=== PATIENT | female | born 1985 | race Asian ===

== ENCOUNTER 2020-07-04 04:05 | Outpatient (CLI) | payer MEDICAID, SELFPAY ==
[2020-07-04 10:16] LABS: HCT 43.3 % (36.0-46.0); HGB 14.3 g/dL (11.2-15.7); MCH 28.9 pg (27.0-33.0); MCV 87.7 fL (80-95); MPV 10.1 fL (8.0-11.0); Platelet Count 295 10^3/uL (130-400); RBC 4.94 10^6/uL (3.93-5.22); RDW-SD 38.4 fL; WBC 6.77 10^3/uL (4.4-10.8)
[2020-07-04 11:49] LABS: Source Nasal/Nares
[2020-07-04 19:02] LABS: COVID-19 PCR Negative (Negative)
== END 2020-07-04 04:06 | disposition home or self-care (01) ==
LOC: LBO 04:05
PROVIDERS: PCP Family Medicine; Visit Provider Obstetrics & Gynecology
DX: Z20.822 Contact with and (suspected) exposure to COVID-19; Z01.818 Encounter for other preprocedural examination; Z01.812 Encounter for preprocedural laboratory examination; Z30.2 Encounter for sterilization
CPT/HCPCS: 36415; 85027; 86850; 86900; 86901; 87635

== ENCOUNTER 2020-08-08 03:18 | Outpatient (CLI) | payer MEDICAID, SELFPAY ==
[2020-08-08 09:55] LABS: HCT 41.6 % (36.0-46.0); MCH 28.7 pg (27.0-33.0); MCHC 33.7 % (32.0-36.0); MCV 85.4 fL (80-95); MPV 9.9 fL (8.0-11.0); Platelet Count 287 10^3/uL (130-400); RBC 4.87 10^6/uL (3.93-5.22); RDW-SD 37.2 fL; WBC 5.56 10^3/uL (4.4-10.8)
[2020-08-08 10:57] LABS: HCG Quant, Pregnancy < 1 mIU/mL (1-3)
[2020-08-08 11:41] LABS: Source Nasal/Nares
[2020-08-08 21:13] LABS: COVID-19 PCR Negative (Negative)
== END 2020-08-08 03:19 | disposition home or self-care (01) ==
LOC: LBO 03:18
PROVIDERS: PCP Family Medicine; Visit Provider Obstetrics & Gynecology
DX: Z30.2 Encounter for sterilization (principal); Z20.822 Contact with and (suspected) exposure to COVID-19; Z01.818 Encounter for other preprocedural examination; Z01.812 Encounter for preprocedural laboratory examination
CPT/HCPCS: 36415; 85027; 86850; 86900; 86901; 87635; 84702

== ENCOUNTER 2020-08-10 06:08 | Day surgery (SDC) | payer MEDICAID, SELFPAY ==
[2020-08-10] VITALS (15 sets, daily range): BP systolic 60–110; BP diastolic 35–67; PULSE 61–90; RESP 10–25; TEMP 36.1–36.6; O2SAT 99–100; BMI 24.6
[2020-08-10] MEDS: Lactated Ringers 1,000 ML 125 ML IV ×2 (07:00→11:46)
--- NOTE | 2020-08-10 07:07 | W.ANESPRE ---
General Info Date of Service Date Performed: 08/10/20 Height: 5 ft Weight: 57.3 kg Body Mass Index (BMI): 24.6 Surgical Procedure: Operation Date: 08/10/20 07:40 Proposed Procedures Side Surgeon p Salpingectomy Laparoscopic Sabra Cifuentes DO Meds Allergies and Home Medications Allergies Allergy/AdvReac Type Severity Reaction Status Date / Time No Known Allergies Allergy Unverified 08/10/20 06:33 Home Medication Medication Instructions Recorded Unknown [No Known Home Meds] 07/04/20 Current Visit Medications: Current Medications Generic Name Dose Route Start Last Admin Trade Name Freq PRN Reason Stop Dose Admin Ringer's Solution 1,000 mls @ 125 mls/hr 08/10/20 06:00 08/10/20 07:00 IV 09/08/20 23:59 125 mls/hr INFUSION ELIDIA Administration IV Miscellaneous Supplies 1 each 08/10/20 06:00 Iv Access IV 09/08/20 23:59 DIRECTED ELIDIA Sodium Chloride 0 ml 08/10/20 06:00 Normal Saline Flush 10 Ml Syr IV 09/08/20 23:59 PRN PRN Sodium Chloride 0 ml 08/10/20 06:00 Normal Saline 10 Ml Vial IJ 09/08/20 23:59 DIRECTED PRN Sterile Water 0 ml 08/10/20 06:00 Water,Injection,Sterile 10 Ml Vial IJ 09/08/20 23:59 DIRECTED PRN PFSH Active Problems Active Problems: Problem Status Onset Code Contraceptive management Z30.9 Medical History Medical History Contraceptive management Tobacco Smoking/Tobacco Use Status: Never Alcohol Alcohol Intake: never Substance Use Substance use type: does not use Vital Signs and Lab Results Vital Signs Most Recent Vital Signs in EMR: Most Recent Vital Signs Temp Pulse Resp BP Pulse Ox 36.6 C 71 16 99/67 L 99 08/10/20 06:34 08/10/20 06:34 08/10/20 06:34 08/10/20 06:34 08/10/20 06:34 Lab Results Result Diagrams: 07/05/20 14:37 Blood Type / Crossmatch: Patient ABO/Rh O Positive 08/08/20 09:47 08/08/20 Antibody Screen Negative 08/08/20 09:47 08/08/20 Complete Blood Count: White Blood Count 5.56 10^3/uL (4.4-10.8) 08/08/20 09:47 08/08/20 Red Blood Count 4.87 10^6/uL (3.93-5.22) 08/08/20 09:47 08/08/20 Hemoglobin 14.0 g/dL (11.2-15.7) 08/08/20 09:47 08/08/20 Hematocrit 41.6 % (36.0-46.0) 08/08/20 09:47 08/08/20 Platelet Count 287 10^3/uL (130-400) 08/08/20 09:47 08/08/20 Complete Metabolic Panel: No Data to Display Liver Function Panel: No Data to Display Coagulation Panel: No Data to Display Cardiac Panel: No Data to Display Arterial Blood Gas: No Data to Display Venous Blood Gas: No Data to Display Pancreas Panel: No Data to Display Thyroid Panel: No Data to Display Infectious Disease: Coronavirus (COVID-19)(PCR) Negative (Negative) 08/08/20 10:26 08/08/20 Coronavirus 2019 Source Nasal/nares 08/08/20 10:26 08/08/20 Blood Cultures: No Data to Display Toxicology Panel: No Data to Display Panel: Beta HCG, Quantitative < 1 mIU/mL (1-3) L 08/08/20 09:47 08/08/20 Anesthesia Assessment and Plan Anesthesia History Personal History: No History of General Anesthesia Family History: No Family History of Anesthesia Complications Exercise Tolerance Exercise Tolerance: Metabolic Equivalents>4 Pertinent Negatives Pertinent Negatives: No Symptoms of GERD Cardiac & Pulmonary Exam Cardiac Exam: Normal S1/S2 Heart Sounds Pulmonary Exam: Clear Bilateral Breath Sounds Airway Exam Known Difficult Airway: No Mallampati Class: 2 Mouth Opening: Normal (> 3cm) Thyromental Distance: Greater than 3 cm Facial Hair: Full Soriano Neck Range of Motion: Full ROM Neck Circumference: Normal Teeth Condition: Normal Dentition ASA Classification ASA Score: ASA 1 Emergency Case?: No NPO Status NPO Status: NPO Clears >2 hours, Solids >8 hours Status Status: Negative HCG Anesthesia Plan Resuscitation Status: Full Code Anesthesia Technique: General Anesthesia Airway Planned: Endotracheal Tube Monitors Used: Standard Monitors
[2020-08-10] MEDS: Bupivacaine 0.25% Pres-Free 30 ML VIAL (09:20)
--- NOTE | 2020-08-10 09:22 | FALL_PTH ---
PATIENT: Art Penn LOC: [facility] U#:[id number] AGE/SX: 35/F ROOM: RE08/10/[address]: Sabra Cifuentes DO : 1985 BED: DIS: 08/10/2020 SPEC #: [id number] RECD: 08/10/20 12:42 STATUS: LUZ MARINA REQ #: [id number] LISA: 08/10/20 09:[address]: Sabra Cifuentes DEPT: Surgical Specimen RECD BY: Adriana Palacios ENTERED: 08/10/20 12:43 SP TYPE: Fall OTHR DR: Vanessa Macdonald Tissues: 1 - FALLOPIAN TUBE (STERILIZATION) 2 - FALLOPIAN TUBE (STERILIZATION) Procedures: GROSS AND MICRO LEVEL 2 Comments: [id number]
--- NOTE | 2020-08-10 09:45 | W.PM.OP ---
Date of service: 08/10/20 Time of Service: 09:45 Operative Note Operative Note DATE OF PROCEDURE: 08/10/20 PRE-OP DIAGNOSIS: Undesired fertility POST-OP DIAGNOSIS: same PROCEDURE: Laparoscopic bilateral salpingectomy SURGEON: Sabra Cifuentes ASSISTING SURGEON: Ritika Cobian ANESTHESIA TYPE: General LMA/ETT Refer to Anesthesia Record ESTIMATED BLOOD LOSS: 5 PATHOLOGY: other (Bilateral fallopian tubes) COMPLICATIONS: None Patient was transported to: PACU Patient's condition: stable Indications: Undesired fertility Findings: Normal-appearing tubes, ovaries, uterus Procedure Description: Patient is a 35-year-old female with undesired fertility. Risk benefits and alternatives of tubal ligation by bilateral salpingectomy were explained to the patient in full informed consent was obtained. She was taken the operating suite with an IV running she was placed in the supine position. Endotracheal intubation performed for the administration of general anesthesia with ease. At this point she was prepped and draped in usual sterile fashion and exam under anesthesia revealed a uterus that is midline and mobile. She was placed in the modified dorsolithotomy position in [facility]. At this point speculum was placed into the posterior vaginal vault and single-tooth tenaculum used to grasp the anterior lip of the cervix. Cervical os dilated the point that a ZUMI uterine manipulator could be placed with and with ease. Tenaculum and speculum were both removed. Attention was turned to the abdomen after sterile gloves placed. Marcaine was used to infiltrate at the umbilicus and a vertical incision was made at the umbilicus. Intra-abdominal wall was elevated and a varies needle directly inserted into the abdomen to create a pneumoperitoneum with CO2 gas to a maximum pressure of 15 mmHg. At this point a Optiview bladeless sleeve and trocar were placed under direct visualization into the abdomen. Abdomen was inspected and found to be atraumatic. A second and third right and left lower quadrant trocar site were placed after infiltration of Marcaine with a 5 mm port. The uterus was then elevated left fallopian tube identified and cautery transected with the LigaSure device from fimbriated end to attachment at the uterus. This was then removed from the abdomen and sent to pathology. A similar procedure was carried out on the right fallopian tube and sent as a set specimen. At this point all pedicles were inspected and found to be hemostatic. Pneumoperitoneum was released and instrumentation removed from the abdomen. Infraumbilical fascial incision was closed using 0 Vicryl suture in a simple interrupted fashion. Skin edges were reapproximated with 4-0 Monocryl suture and Steri-Strips were placed. Sterile dressings were placed over and the ZUMI uterine manipulator was removed from the uterus. Patient was then returned to the dorsal supine position and awoke from anesthesia with ease. She was taken recovery in stable condition. Findings: Normal-appearing tubes, ovaries, uterus. EBL: 5 mL Complications: None apparent Pathology: Separately labeled right and left fallopian tube.
[2020-08-10] MEDS: Normal Saline Flush 10 ML SYR IV (10:23)
[2020-08-10] MEDS: HYDROmorphone 2 MG/ML VIAL IVP ×2 (10:23→10:37)
--- NOTE | 2020-08-10 12:19 | W.ANESPOSTOP ---
Postoperative Evaluation Date, Time and Location Date Performed: 08/10/20 Time Performed: 12:20 Patient Location: Day Surgery Unit Vital Signs Most Recent Imported Vital Signs: Most Recent Vital Signs Temp Pulse Resp BP Pulse Ox 36.5 C 77 14 110/66 100 08/10/20 12:06 08/10/20 12:06 08/10/20 12:06 08/10/20 12:06 08/10/20 12:06 Pain Score Most Recent Pain Score: Most Recent Pain Score Pain Level 0 08/10/20 12:06 Assessment Mental Status: Awake (Alert & Oriented to Patient Baseline) Airway and Respiratory Function: Patent airway with normal (patient baseline) respiratory exam Cardiovascular Function: Hemodynamically Stable Hydration Status: Adequately Hydrated Nausea & Vomiting: No Nausea or Vomiting Pain: Pt. Denies Any Pain Peripheral Nerve Block: Patient did not receive a nerve block
[2020-08-10] MEDS: Acetaminophen 500 MG TAB PO (13:33)
== END 2020-08-10 13:56 | disposition home or self-care (01) ==
PROVIDERS: PCP Family Medicine; Visit Provider Obstetrics & Gynecology
PROC: (CPT 58661; principal; 2020-08-10 07:30)
DX: Z30.2 Encounter for sterilization
CPT/HCPCS: 58661; 88302; J1100; J1885; J2001; J2250; J2405